=== PATIENT | male | born 1985 | race African-American/Black ===

== ENCOUNTER 2017-05-30 13:15 | Emergency (ER) | payer OTHER ==
[~2017-05-30] VITALS: Ht 170.2 cm; Wt 81.7 kg
[~2017-05-30 13:15] MED LIST: BACTRIM DS TAB1 EACH PO; KEFLEX500 MG PO; NYSTATIN-TRIAMC15 G1 TP; TORADOL 10 MG T10 MG PO
[2017-05-30 14:05] LABS: URINE BILIRUBIN NEGATIVE (Negative); URINE BLOOD NEGATIVE (Negative); URINE CLARITY CLEAR; URINE COLOR YELLOW; URINE GLUCOSE-RANDOM* NEGATIVE (Negative); URINE KETONES NEGATIVE (Negative); URINE NITRITE-REFLEX NEGATIVE (Negative); URINE PROTEIN (DIPSTICK) NEGATIVE (Negative); URINE UROBILINOGEN 0.2 E.U./dl (0.2-1.0)
[2017-05-30 14:06] LABS: URINE LEUKOCYTES-REFLEX TRACE (Negative)
[2017-05-30 14:08] LABS: BASOPHILS 0.9 % (0.0-2.0); EOSINOPHILS 2.9 % (0.0-3.0); HEMATOCRIT 47.1 % (42.0-52.0); HEMOGLOBIN 15.9 gm/dL (14.0-18.0); LYMPHOCYTES 41.3 % (24.0-44.0); MCH 29.4 pg (26.0-34.0); MCHC 33.7 g/dL (28.0-37.0); MONOCYTES 10.3 % (1.0-8.0); PLATELET COUNT 227 thou/uL (150-400); POLYS 44.6 % (36.0-66.0); RBC 5.41 mil/uL (4.50-6.00); RDW 13.7 % (10.5-14.5); WBC 4.5 thou/uL (4.0-11.0)
[2017-05-30 14:16] LABS: CALCIUM 9.2 mg/dL (8.5-10.1); CREATININE 1.2 mg/dL (0.7-1.3); POTASSIUM 4.3 mmol/L (3.5-5.1)
[2017-05-30 14:24] LABS: ALBUMIN 3.7 g/dL (3.4-5.0); TOTAL BILIRUBIN 0.5 mg/dL (<0.1-1.0); TOTAL PROTEIN 6.7 g/dL (6.4-8.2)
[2017-05-30] MEDS ORDERED: LIORESAL 10 MG10 MG PO (15:07)
[2017-05-30] MEDS ORDERED: MOBIC15 MG PO (15:07)
== END 2017-05-30 15:16 | disposition home or self-care (01) ==
LOC: ER 13:15
PROVIDERS: Physician Assistant
DX: S39.012A Strain of muscle, fascia and tendon of lower back, initial encounter (principal); N62 Hypertrophy of breast; R10.33 Periumbilical pain; J45.909 Unspecified asthma, uncomplicated; F12.10 Cannabis abuse, uncomplicated; F17.210 Nicotine dependence, cigarettes, uncomplicated; Z71.6 Tobacco abuse counseling; X58.XXXA Exposure to other specified factors, initial encounter; Y93.89 Activity, other specified; Y92.89 Other specified places as the place of occurrence of the external cause; Y99.8 Other external cause status

== ENCOUNTER 2018-03-19 10:59 | Emergency (ER) | payer OTHER ==
[~2018-03-19] VITALS: Ht 170.2 cm; Wt 85.7 kg
[~2018-03-19 10:59] MED LIST changes: +LIORESAL 10 MG10 MG PO; +MOBIC15 MG PO
[2018-03-19] MEDS ORDERED: OSELB75 PO (12:10)
[2018-03-19] MEDS ORDERED: AFRIN15 ML NASAL (12:10)
[2018-03-19 12:43] VITALS: BP 125/74
== END 2018-03-19 12:44 | disposition home or self-care (01) ==
LOC: ER 10:59
DX: J11.1 Influenza due to unidentified influenza virus with other respiratory manifestations (principal); F17.210 Nicotine dependence, cigarettes, uncomplicated; J45.909 Unspecified asthma, uncomplicated

== ENCOUNTER 2019-01-03 09:26 | Emergency (ER) | payer OTHER ==
[~2019-01-03] VITALS: Ht 170.2 cm; Wt 81.7 kg
[~2019-01-03 09:26] MED LIST changes: +AFRIN15 ML NASAL; +OSELB75 PO
[2019-01-03 09:40] LABS: URINE BLOOD NEGATIVE (Negative); URINE CLARITY CLEAR; URINE GLUCOSE-RANDOM* NEGATIVE (Negative); URINE KETONES TRACE (Negative); URINE LEUKOCYTES TRACE (Negative); URINE NITRITE NEGATIVE (Negative); URINE PROTEIN (DIPSTICK) 1+ (Negative); URINE SPECIFIC GRAVITY 1.025 (1.005-1.035)
[2019-01-03 09:43] LABS: URINE BILIRUBIN NEGATIVE (Negative); URINE COLOR DARK YELLOW
[2019-01-03 09:44] LABS: ICTOTEST (BILI CONFIRMATORY) Negative (Negative)
[2019-01-03 09:48] LABS: ABSOLUTE NEUTROPHILS 5.2 thou/uL (1.4-8.2); BASOPHILS 1.4 % (0.0-2.0); EOSINOPHILS 0.9 % (0.0-3.0); HEMATOCRIT 47.6 % (42.0-52.0); HEMOGLOBIN 15.8 gm/dL (14.0-18.0); LYMPHOCYTES 20.6 % (24.0-44.0); MCH 28.9 pg (26.0-34.0); MCHC 33.1 g/dL (28.0-37.0); MCV 87.4 fL (80.0-100.0); MONOCYTES 8.1 % (1.0-8.0); PLATELET COUNT 251 thou/uL (150-400); RBC 5.45 mil/uL (4.50-6.00); RDW 15.2 % (10.5-14.5); WBC 7.5 thou/uL (4.0-11.0)
[2019-01-03 09:52] LABS: CASTS None Seen /LPF (None Seen); MUCUS >6 Heavy strn/LPF (None Seen); SQUAMOUS 4-10 Moderate /LPF (0-3)
[2019-01-03 09:55] LABS: AMORPHOUS URATES Few /LPF (None Seen); BACTERIA 1-9 Few /HPF (None Seen); URINE RBC None Seen /HPF (0-2)
[2019-01-03 09:57] LABS: CALCIUM 9.1 mg/dL (8.5-10.1); CREATININE 1.2 mg/dL (0.7-1.3)
[2019-01-03 10:59] VITALS: BP 136/82
== END 2019-01-03 10:59 | disposition home or self-care (01) ==
LOC: ER 09:26
PROVIDERS: Emergency Medicine
DX: M54.5 Low back pain (principal); J45.909 Unspecified asthma, uncomplicated; F17.210 Nicotine dependence, cigarettes, uncomplicated

== ENCOUNTER 2019-01-29 19:34 | Emergency (ER) | payer OTHER ==
[~2019-01-29] VITALS: Ht 165.1 cm; Wt 81.7 kg
[2019-01-29 20:15] LABS: ABSOLUTE NEUTROPHILS 2.3 thou/uL (1.4-8.2); EOSINOPHILS 0.6 % (0.0-3.0); LYMPHOCYTES 45.6 % (24.0-44.0); MCH 29.6 pg (26.0-34.0); MCHC 33.4 g/dL (28.0-37.0); MCV 88.6 fL (80.0-100.0); MONOCYTES 9.8 % (1.0-8.0); PLATELET COUNT 248 thou/uL (150-400); RBC 5.08 mil/uL (4.50-6.00); RDW 14.8 % (10.5-14.5); WBC 5.4 thou/uL (4.0-11.0)
[2019-01-29 20:23] LABS: CALCIUM 8.7 mg/dL (8.5-10.1); CREATININE 1.2 mg/dL (0.7-1.3); POTASSIUM 3.2 mmol/L (3.5-5.1)
[2019-01-30] MEDS ORDERED: IBUPROFEN 600600 M1 PO (01:25)
[2019-01-30] MEDS ORDERED: NORCO 5-325 TA1 EAC1 PO (01:25)
[2019-01-30] MEDS ORDERED: KEFLEX500 M1 PO (01:25)
[2019-01-30] MEDS ORDERED: SENNA-DOCUSATE1 EAC1 PO (01:25)
[2019-01-30 02:01] VITALS: BP 135/88
== END 2019-01-30 02:02 | disposition home or self-care (01) ==
LOC: ER 19:34
PROVIDERS: Emergency Medicine
DX: S51.811A Laceration without foreign body of right forearm, initial encounter (principal); S61.511A Laceration without foreign body of right wrist, initial encounter; S41.011A Laceration without foreign body of right shoulder, initial encounter; J45.909 Unspecified asthma, uncomplicated; F17.210 Nicotine dependence, cigarettes, uncomplicated; W25.XXXA Contact with sharp glass, initial encounter; Y93.89 Activity, other specified; Y92.89 Other specified places as the place of occurrence of the external cause; Y99.8 Other external cause status

== ENCOUNTER 2019-01-30 20:38 | Emergency (ER) | payer OTHER ==
[~2019-01-30] VITALS: Ht 167.6 cm; Wt 68.0 kg
[~2019-01-30 20:38] MED LIST changes: +IBUPROFEN 600600 M1 PO; +KEFLEX500 M1 PO; +NORCO 5-325 TA1 EAC1 PO; +SENNA-DOCUSATE1 EAC1 PO
== END 2019-01-30 21:22 | disposition home or self-care (01) ==
LOC: ER 20:38
DX: Z53.21 Procedure and treatment not carried out due to patient leaving prior to being seen by health care provider (principal)

== ENCOUNTER 2019-01-31 10:14 | Emergency (ER) | payer OTHER ==
[~2019-01-31] VITALS: Ht 170.2 cm; Wt 81.7 kg
[2019-01-31 12:04] VITALS: BP 117/70
== END 2019-01-31 12:06 | disposition home or self-care (01) ==
LOC: ER 10:14
DX: S51.811D Laceration without foreign body of right forearm, subsequent encounter (principal); M79.601 Pain in right arm; J45.909 Unspecified asthma, uncomplicated; F17.210 Nicotine dependence, cigarettes, uncomplicated; Z48.00 Encounter for change or removal of nonsurgical wound dressing; X58.XXXD Exposure to other specified factors, subsequent encounter

== ENCOUNTER 2019-02-10 18:05 | Emergency (ER) | payer OTHER ==
[~2019-02-10] VITALS: Ht 167.6 cm; Wt 81.7 kg
[2019-02-10 18:18] VITALS: BP 140/72
== END 2019-02-10 19:22 | disposition home or self-care (01) ==
LOC: ER 18:05
DX: S41.111D Laceration without foreign body of right upper arm, subsequent encounter (principal); Z48.02 Encounter for removal of sutures; X58.XXXD Exposure to other specified factors, subsequent encounter

== ENCOUNTER 2019-09-09 18:58 | Emergency (ER) | payer OTHER ==
[~2019-09-09] VITALS: Ht 172.7 cm; Wt 81.7 kg
[2019-09-09 20:37] VITALS: BP 148/80
[2019-09-09] MEDS ORDERED: ERYTHROMYCIN E3.5 G3 OPHTHALMIC (20:47)
[2019-09-09] MEDS ORDERED: NORCO 5-325 TA1 EAC1 PO (20:47)
[2019-09-09] MEDS ORDERED: SSD CREAM 1% 5050 GM TOP (20:52)
== END 2019-09-09 21:00 | disposition home or self-care (01) ==
LOC: ER 18:58
DX: T20.16XA Burn of first degree of forehead and cheek, initial encounter (principal); T22.151A Burn of first degree of right shoulder, initial encounter; T22.10XA Burn of first degree of shoulder and upper limb, except wrist and hand, unspecified site, initial encounter; T26.01XA Burn of right eyelid and periocular area, initial encounter; T75.09XA Other effects of lightning, initial encounter; J45.909 Unspecified asthma, uncomplicated; F17.210 Nicotine dependence, cigarettes, uncomplicated; X08.8XXA Exposure to other specified smoke, fire and flames, initial encounter; Y93.89 Activity, other specified; Y92.89 Other specified places as the place of occurrence of the external cause; Y99.8 Other external cause status

== ENCOUNTER 2019-12-28 11:44 | Emergency (ER) | payer OTHER ==
[~2019-12-28] VITALS: Ht 167.6 cm; Wt 80.7 kg
[~2019-12-28 11:44] MED LIST changes: +ERYTHROMYCIN E3.5 G3 OPHTHALMIC; +SSD CREAM 1% 5050 GM TOP
[2019-12-28 11:52] VITALS: BP 129/82
[2019-12-28] MEDS ORDERED: ERYTHROMYCIN E3.5 G2 OPHTHALMIC (12:18)
== END 2019-12-28 12:38 | disposition home or self-care (01) ==
LOC: ER 11:44
DX: S05.02XA Injury of conjunctiva and corneal abrasion without foreign body, left eye, initial encounter (principal); H10.9 Unspecified conjunctivitis; J45.909 Unspecified asthma, uncomplicated; F17.210 Nicotine dependence, cigarettes, uncomplicated; W50.0XXA Accidental hit or strike by another person, initial encounter; Y93.89 Activity, other specified; Y92.89 Other specified places as the place of occurrence of the external cause; Y99.8 Other external cause status